=== PATIENT | female | born 1990 | race Caucasian/White ===

== ENCOUNTER 2021-08-04 22:03 | Emergency (ER) | payer OTHER ==
[~2021-08-04] VITALS: Ht 160 cm; Wt 99.8 kg
[2021-08-04] MEDS ORDERED: VENTOLIN HFA18 GM INH (22:25)
== END 2021-08-04 23:57 | disposition home or self-care (01) ==
LOC: ED 22:03
DX: T63.441A Toxic effect of venom of bees, accidental (unintentional), initial encounter (principal); J45.909 Unspecified asthma, uncomplicated; Z91.038 Other insect allergy status
CPT/HCPCS: 99282

== ENCOUNTER 2022-04-12 19:25 | Emergency (ER) | payer OTHER ==
[~2022-04-12] VITALS: Ht 160 cm; Wt 106.0 kg
[~2022-04-12 19:25] MED LIST: VENTOLIN HFA18 GM INH
[2022-04-12] MEDS ORDERED: ONDANSETRON ODT8 MG PO (20:56)
== END 2022-04-12 21:10 | disposition home or self-care (01) ==
LOC: ED 19:25
DX: A08.4 Viral intestinal infection, unspecified (principal); J45.909 Unspecified asthma, uncomplicated; Z91.030 Bee allergy status
CPT/HCPCS: 36415; 80053; 81001; 83690; 84703; 85025; 99284; A9270; J7030

== ENCOUNTER 2022-07-20 23:06 | Emergency (ER) | payer OTHER ==
[~2022-07-20] VITALS: Ht 160 cm; Wt 102.2 kg
[~2022-07-20 23:06] MED LIST changes: +ONDANSETRON ODT8 MG PO
[2022-07-21] MEDS ORDERED: CYCLOBENZAPRINE10 MG PO (00:10)
== END 2022-07-21 00:29 | disposition home or self-care (01) ==
LOC: ED 23:06
DX: S39.012A Strain of muscle, fascia and tendon of lower back, initial encounter (principal); J45.909 Unspecified asthma, uncomplicated; Z91.030 Bee allergy status; Z79.899 Other long term (current) drug therapy; X58.XXXA Exposure to other specified factors, initial encounter
CPT/HCPCS: 72100; 81001; 84703; 96372; 99283-25; J1885; J3360

== ENCOUNTER 2022-10-22 13:31 | Emergency (ER) | payer OTHER ==
[~2022-10-22] VITALS: Ht 160 cm; Wt 102.2 kg
[~2022-10-22 13:31] MED LIST changes: +CYCLOBENZAPRINE10 MG PO
== END 2022-10-22 19:48 | disposition home or self-care (01) ==
LOC: ED 13:31
DX: M53.3 Sacrococcygeal disorders, not elsewhere classified (principal); J45.909 Unspecified asthma, uncomplicated; Z91.030 Bee allergy status; Z79.899 Other long term (current) drug therapy
CPT/HCPCS: 36415; 72193; 80048; 84703; 85025; 99284-25; Q9967

== ENCOUNTER 2023-01-09 18:16 | Emergency (ER) | payer OTHER ==
[~2023-01-09] VITALS: Ht 160 cm; Wt 97.5 kg
== END 2023-01-09 20:38 | disposition home or self-care (01) ==
LOC: ED 18:16
DX: J03.00 Acute streptococcal tonsillitis, unspecified (principal); J45.909 Unspecified asthma, uncomplicated; Z91.030 Bee allergy status
CPT/HCPCS: 87880; 96372; 99283; J0561

== ENCOUNTER 2023-02-19 14:05 | Emergency (ER) | payer OTHER ==
[~2023-02-19] VITALS: Ht 160 cm; Wt 99.9 kg
[2023-02-19] MEDS ORDERED: BUPROPION XL150 MG PO (14:13)
[2023-02-19] MEDS ORDERED: CIPRO500 MG PO (16:15)
[2023-02-19] MEDS ORDERED: METRONIDAZOLE500 MG PO (16:15)
[2023-02-19] MEDS ORDERED: HYDROCODON-ACE1 EA10 PO (16:15)
== END 2023-02-19 17:45 | disposition home or self-care (01) ==
LOC: ED 14:05
DX: K57.32 Diverticulitis of large intestine without perforation or abscess without bleeding (principal); J45.909 Unspecified asthma, uncomplicated; Z91.030 Bee allergy status; Z79.899 Other long term (current) drug therapy
CPT/HCPCS: 36415; 74176; 80053; 81001; 83690; 84703; 85025; 96365; 96375; 99284-25; J1885; J2405; J2543; J7030